=== PATIENT | male | born 1970 ===

== ENCOUNTER 2023-04-11 17:08 | Emergency (ER) | payer OTHER, SELFPAY ==
[2023-04-11 17:26] VITALS: BP 178/113; PULSE 67; RESP 16; O2SAT 100
[2023-04-11 17:30] VITALS: TEMP 37
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
[2023-04-11] MEDS: cloNIDine HCL 0.1 MG TABLET PO (17:47)
[2023-04-11 18:09] VITALS: BP 179/105
== END 2023-04-11 18:30 | disposition home or self-care (01) ==
PROVIDERS: Emergency Provider Registered Nurse
DX: I10 Essential (primary) hypertension (principal)
CPT/HCPCS: 99213; A9270; G0463